=== PATIENT | female | born 1935 | race Caucasian/White ===

== ENCOUNTER 2017-07-21 20:06 | Inpatient (IN) | payer OTHER ==
[~2017-07-21] VITALS: Ht 162.6 cm; Wt 86.2 kg
--- NOTE | ~2017-07-21 | EKG ---
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
--- NOTE | ~2017-07-21 | 2DMMODE ---
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 BSA: 1.90 HR: 65 bpm BP: 124/64 mmHg Other Information Study Quality: Adequate Indications Non STEMI Chest Pain Hypertension/HDD 2D Dimensions RVDd: 39.46 mm LVEF(%): 64.61 (>50%) IVSd: 9.22 (7-11mm) LVOT Diam: 18.05 (18-24mm) LVDd: 45.80 mm PWd: 8.44 (7-11mm) Ascending Ao: 31.19 (22-36mm) LVDs: 29.68 (25-40mm) Aortic Root: 28.50 mm IVC: 17.00 mm Bowman's LVEF: 64.61 % Volumes Left Atrial Volume (Systole) Single Plane 4CH: 59.76 mL Single Plane 2CH: 49.90 mL LA ESV Index: 34.00 mL/m2 Aortic Valve AoV Peak Tam.: 1.10 m/s AO Peak Gr.: 4.83 mmHg LVOT Max P.47 mmHg LVOT Max V: 0.93 m/s JANA Vmax: 2.17 cm2 AI Vmax: 3.67 m/s AI [place]: 1.96 m/s2 AI PHT: 542.29 ms [facility] [place] [address] 2 D/M-MODE ECHOCARDIOGRAM Name: PAULA MARIN Room #: 217-P [facility] IN M.R.#: [id number] Admission: 07/21/17 Attend Phys: Piper Lucia Discharge: Date of : 33 Date of Service: 07/22/17 1342 Report #: [id number] Mitral Valve E/A Ratio: 3.5 MV Decel. Time: 158.63 ms MV E Max Tam.: 1.06 m/s MV A Tam.: 0.30 m/s MV PHT: 46.00 ms IVRT: 96.89 ms Pulmonary Valve PV Peak Tam.: 0.92 m/s PV Peak Gr.: 3.42 mmHg Pulmonary Vein P Vein S: 0.41 m/s P Vein A: 0.34 m/s P Vein D: 0.71 m/s P Vein A Dur.: 133.8 msec P Vein S/D Ratio: 0.58 Tricuspid Valve TR Peak Tam.: 3.05 m/s TR Peak Gr.: 37.29 mmHg PA Pressure: 42.00 mmHg Left Ventricle The left ventricle is normal size. There is akinesis in the apical wall. There is normal left ventricular wall thickness. Left ventricular ejection fraction is moderately decreased. LVEF is 35%. The diastolic function is abnormal. Right Ventricle The right ventricle is normal size. The right ventricular systolic function is normal. Atria Left atrium is at the upper limits of normal. Right atrium is borderline dilated. Aortic Valve The aortic valve is normal in structure. Aortic valve is calcified. Mild aortic regurgitation. There is no aortic valvular stenosis. Mitral Valve The mitral valve is normal in structure. Mild mitral regurgitation. No evidence of mitral valve stenosis. Tricuspid Valve [address] [address] 2 D/M-MODE ECHOCARDIOGRAM Name: PAULA MARIN AKHIL Room #: 217-P [facility] IN [facility].#: [id number] Admission: 07/21/17 Attend Phys: Piper Lucia Discharge: Date of : 31 Date of Service: 07/22/17 1342 Report #: [id number] The tricuspid valve is normal in structure. There is trace to mild tricuspid regurgitation. Estimated PAP 42 mmHg. There is moderate pulmonary hypertension. Pulmonic Valve The pulmonary valve is normal in structure. Trace pulmonic regurgitation. Great Vessels The aortic root is normal in size. IVC is normal in size and collapses >50% with inspiration. Pericardium There is no pericardial effusion. <Conclusion> The left ventricle is normal size. LVEF is 35%. Left atrium is at the upper limits of normal. Right atrium is borderline dilated. The aortic valve is normal in structure. Aortic valve is calcified. Mild aortic regurgitation. There is no aortic valvular stenosis. The mitral valve is normal in structure. Mild mitral regurgitation. The tricuspid valve is normal in structure. There is trace to mild tricuspid regurgitation. Estimated PAP 42 mmHg. There is moderate pulmonary hypertension. The pulmonary valve is normal in structure. Trace pulmonic regurgitation. There is no pericardial effusion. <ELECTRONICALLY SIGNED> By: Jorge Lundberg MD 07/22/17 1342 1342 1342 Jorge Lundberg MD /INF
--- NOTE | ~2017-07-21 | EKG ---
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 : 1935 Requested By: Edelmira Clement Order Number: [id number] MD: Leander Mcknight Measurements Intervals [place] Rate: 61 P: 69 [place]: 154 QRS: 59 QRSD: 95 T: 55 QT: 433 QTc: 437 Interpretive Statements Sinus rhythm Atrial premature complexes in couplets Low voltage, extremity leads Compared to ECG 01/04/2014 15:28:00 Atrial premature complex(es) now present Low QRS voltage now present Electronically Signed On 07-23-2017 8:09:25 CDT by Leander Mcknight [email or web address] <ELECTRONICALLY SIGNED> By: Leander Mcknight MD 07/23/17 0809 0436 0436 Leander Mcknight MD /EPI
--- NOTE | ~2017-07-21 | CATHLAB ---
[facility] [address] [place] [address] INVASIVE PROCEDURE REPORT Name: PAULA MARIN Room #: 217-P [facility] IN ..#: [id number] Admission: 07/21/17 Attend Phys: Sharath Schumacher, Discharge: Date of : 33 Date of Service: 07/24/17 1457 Report #: [id number] THIS REPORT FOR: //name// APPROVED REPORT Study performed: 07/23/2017 12:32:36 Patient Details Patient Status: In-Patient Room #: The patient is a 82 year-old female Event Personnel Jorge Lundberg [employer] Teacher, Sarah Garcia, TEST AND BALANCE ENGINEER Monitor, Caitlin Segal Knisely, Ceola RN explosives operator Performed Art Access - R femoral artery* 05190 Initial Mod Sed Same Phys/QHP Gr5y 335995 Left Heart Cath w/or w/o Coronaries 7145505 C Hemostasis w/ Mynx SAAD Place w/wo Plasty Single LAD 525434 supervision of conscious sedation Indication Non-STEMI Procedure Narrative The patient was brought urgently to the Cardiac Catheterization Laboratory and was prepped and draped in a sterile manner. The Right Groin^ was infiltrated with 1% Lidocaine subcutaneous anesthesia. A PINNACLE 4FR Sheath #[id number] sheath was inserted into the RFA^. Coronary angiography was performed using coronary diagnostic catheters. The right coronary system was accessed and visualized with a JR 4 catheter. The left coronary system was accessed and visualized with a JL 4 catheter. The left ventricle was accessed and visualized with a Pigtail catheter. Left ventricular/Aortic Valve gradient assessed via catheter pullback. Closure device was deployed with a 6 Fr Mynx. The patient tolerated the procedure well and there were no complications associated with the procedure. There was no hematoma. Intraoperative Conscious Sedation Sedation start time: 13:20 Case end Time: 13:46 Versed 2 mg [facility] [address] [place] [address] INVASIVE PROCEDURE REPORT Name: MARINPAULA AKHIL Room #: 217-P [facility] IN ..#: [id number] Admission: 07/21/17 Attend Phys: Sharath Schumacher, Discharge: Date of : 33 Date of Service: 07/24/17 1457 Report #: [id number] Fluoro Time: 6.30 minutes Dose: DAP 4860.76 cGycm2 Contrast Type and Amount: Omnipaque 145 ml Coronary Angiography The patient's coronary anatomy is right dominant. Diagnostic Cath Left Main Left main is of normal or drink caliber bifurcates left anterior descending left circumflex. There is mild luminal irregularities but no high-grade lesions present LAD Small to moderate caliber type II vessel which courses in the anterior interventricular sulcus prior to the origin of the first septal craft worker there is a lesion that appears to be greater than 95% it is eccentric in nature. The vessel then continues on in the sulcus giving rise to diagonal and other septal branches. In the proximal third of the mid LAD there is a region that appears to be 50% eccentric restenosis which is not flow-limiting. The vessel then continues with the apex terminates as a small caliber vessel Diagonal 1 Small-caliber vessel coursing on the anterolateral wall. High-grade disease Circumflex Moderate caliber vessel disease in the AV groove giving rise to marginal branches first of which is quite low moderate to large in caliber with only a mild ostial tapering but no high-grade lesions the subsequent terminal branch of the circumflex is a trifurcating posterior wall branch. OM1 March large-caliber vessel without significant obstructive lesions noted as it courses on the lateral aspect of the heart Right Coronary Moderate caliber vessel of normal origin with there is a 50% proximal eccentric lesion. This vessel continues on giving rise to small RV marginal branches and then terminates as a posterior descending artery extending towards the apex. No high-grade stenotic lesions are noted in the mid R PDA Her caliber vessel without significant high-grade lesions noted Left Ventriculography Left Ventriculography was not performed. Hemodynamics The aortic pressure is 155/81 mmHg with a mean of 118 mmHg. The left ventricular pressure is 161/23 mmHg with a mean of mmHg. The left ventricular end diastolic pressure is 36 mmHg. PCI Technique Diagnostic catheters were then exchanged for a standard left guide [facility] [address] [place] [address] INVASIVE PROCEDURE REPORT Name: TOMASPAULAJJ LANDAVERDE Room #: 217-P ADM IN M.R.#: [id number] Admission: 07/21/17 Attend Phys: Sharath Schumacher, Discharge: Date of : 33 Date of Service: 07/24/17 1457 Report #: [id number] which was engaged with a left coronary ostium. 014 wire was advanced percent of protocol and positioned distal to the lesion. 2.5 x 14 mm SAAD stent was then positioned across the stenotic region and was dilated to 12 casey the vessel appeared patent post dilatation. Septal craft worker had a previous high-grade ostial lesion and the vessel was not further compromised by stenting. The LAD then continues on in reassessment of the mid LAD lesion showed to be no greater than 50% stenosed and was not intervened especially since the diameter of the LAD proper was less than 1.5 mm. Patient tolerated procedure well wires and guide catheters were removed. Going angiography was performed and the site was closed per protocol. No complications. LUZ flow was improved to normal post dilatation without signs of intraluminal disruption, thrombus. PCI Technique Lesion Anticoagulation was achieved with Angiomax. Percutaneous coronary intervention was performed on the proximal left anterior descending artery segment. A LAUNCHER 6FR JL4 #[id number] Guide Catheter was used to engage the ostium. A Luge Wire (J) .014 X 182CM #[id number] Interventional Guidewire was used to cross the lesion. BALLOON DILATION A Balloon catheter RESOLUTE OTW 2.5 X 14 #[id number] was inserted and inflated up to 9.00atm for 15seconds. Additional Inflation: 12.00atm for 10seconds. Conclusion 1. Coronary disease, severe single-vessel 2. Abnormal urinalysis elevated lipids with end-diastolic pressures 3. Successful percutaneous revascularization with a 2.5 x 14 Medtronic SAAD stent position in the proximal LAD dilated to 12 casey Recommendations Cardiac Rehabilitation Referral Cardiac Risk Reduction Program Aggressive Medical Therapy [facility] [email or web address] [address] INVASIVE PROCEDURE REPORT Name: PAULA MARIN Room #: 217-P ADM IN M.R.#: [id number] Admission: 07/21/17 Attend Phys: Sharath Schumacher, Discharge: Date of : 33 Date of Service: 07/24/17 1457 Report #: [id number] Medications Administered Ticagrelor <ELECTRONICALLY SIGNED> By: Jorge Lundberg MD 07/24/17 1457 56 56 Jorge Lundberg MD /INF
--- NOTE | ~2017-07-21 | EKG ---
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 : 1935 Requested By: Jorge Lundberg Order Number: [id number] MD: Morris Archibald Measurements Intervals [place] Rate: 70 P: 61 [place]: 159 QRS: 66 QRSD: 91 T: 150 QT: 479 QTc: 517 Interpretive Statements Sinus rhythm Low voltage, extremity leads Nonspecific T abnrm, anterolateral leads Prolonged QT interval Compared to ECG 07/22/2017 04:36:15 Prolonged QT interval now present Atrial premature complex(es) no longer present Electronically Signed On 07-24-2017 7:51:19 CDT by Morris Archibald [email or web address] <ELECTRONICALLY SIGNED> By: Morris Archibald MD, [facility] 07/24/17 0751 0644 0644 Morris Archibald MD, [facility] /EPI
[~2017-07-21 20:06] MED LIST: BENICAR20 MG PO; CELEBREX 200 M200 MG PO; CLONAZEPAM 1 MG1 M1 PO; KEFLEX500 MG PO; LIPITOR 10 MG10 M1 PO; OMEPRAZOLE 20 M20 M1 PO; SYNTHROID50 MCG PO; TOPROL XL50 MG PO
[2017-07-21 20:08] VITALS: BP 181/90
[2017-07-21] MEDS ORDERED: BENICAR20 MG PO (20:33)
[2017-07-21] MEDS ORDERED: MAGNESIUM PO (20:35)
[2017-07-21 20:45] LABS: ABSOLUTE NEUTROPHILS 3.2 thou/uL (1.4-8.2); BASOPHILS 0.8 % (0.0-2.0); EOSINOPHILS 3.8 % (0.0-3.0); HEMATOCRIT 40.3 % (37.0-47.0); HEMOGLOBIN 13.4 gm/dL (12.0-15.0); LYMPHOCYTES 34.8 % (24.0-44.0); MCH 30.7 pg (26.0-34.0); MCHC 33.3 g/dL (28.0-37.0); MCV 92.4 fL (80.0-100.0); PLATELET COUNT 174 thou/uL (150-400); POLYS 49.6 % (36.0-66.0); RBC 4.36 mil/uL (4.20-5.00); RDW 13.7 % (10.5-14.5); WBC 6.5 thou/uL (4.0-11.0)
[2017-07-21 20:53] LABS: CALCIUM 9.6 mg/dL (8.5-10.1); CREATININE 1.2 mg/dL (0.6-1.0); POTASSIUM 4.1 mmol/L (3.5-5.1)
[2017-07-21 21:02] LABS: ALBUMIN 3.6 g/dL (3.4-5.0); TOTAL BILIRUBIN 0.5 mg/dL (<0.1-1.0); TOTAL PROTEIN 7.8 g/dL (6.4-8.2); TROPONIN-I 0.07 ng/mL (<0.06)
[2017-07-21 21:11] LABS: URINE BILIRUBIN NEGATIVE (Negative); URINE BLOOD NEGATIVE (Negative); URINE CLARITY CLEAR; URINE COLOR YELLOW; URINE GLUCOSE-RANDOM* NEGATIVE (Negative); URINE KETONES NEGATIVE (Negative); URINE LEUKOCYTES TRACE (Negative); URINE NITRITE NEGATIVE (Negative); URINE PROTEIN (DIPSTICK) NEGATIVE (Negative); URINE UROBILINOGEN 0.2 E.U./dl (0.2-1.0)
[2017-07-21 22:12] VITALS: BP 166/77
[2017-07-21 22:57] VITALS: BP 164/70
[2017-07-21 23:20] VITALS: BP 144/57
[2017-07-22] MEDS ORDERED: REMERON15 MG PO (00:43)
[2017-07-22 04:59] VITALS: BP 113/67
[2017-07-22 07:50] VITALS: BP 139/63
[2017-07-22 09:07] LABS: HEMATOCRIT 39.9 % (37.0-47.0); HEMOGLOBIN 13.3 gm/dL (12.0-15.0); MCH 30.7 pg (26.0-34.0); MCHC 33.5 g/dL (28.0-37.0); MCV 91.8 fL (80.0-100.0); RBC 4.34 mil/uL (4.20-5.00); RDW 13.4 % (10.5-14.5); WBC 7.1 thou/uL (4.0-11.0)
[2017-07-22 09:16] LABS: PROTIME 10.6 Seconds (9.3-11.4)
[2017-07-22 09:20] LABS: CHOLESTEROL 196 mg/dL (<200); HDL CHOLESTEROL 73 mg/dL (>40); LDL CHOLESTEROL 117 mg/dL (<100); SERUM ASSESSMENT Clear; TC:HDL 2.7 Ratio (Not establshd); TRIGLYCERIDE 31 mg/dL (<150); VLDL 6 mg/dL (<40)
[2017-07-22 11:20] VITALS: BP 124/64
[2017-07-22 16:05] VITALS: BP 144/60
[2017-07-22 21:09] VITALS: BP 116/61
[2017-07-22 23:07] LABS: GLYCOHEMOGLOBIN (HGB A1C) 5.8 % (4.8-5.6)
[2017-07-23] VITALS (10 sets, daily range): BP systolic 104–139; BP diastolic 43–78
[2017-07-24 04:11] LABS: HEMATOCRIT 38.3 % (37.0-47.0); HEMOGLOBIN 12.8 gm/dL (12.0-15.0); MCH 30.7 pg (26.0-34.0); MCHC 33.5 g/dL (28.0-37.0); MCV 91.7 fL (80.0-100.0); RBC 4.17 mil/uL (4.20-5.00); RDW 13.5 % (10.5-14.5); WBC 7.7 thou/uL (4.0-11.0)
[2017-07-24 04:26] LABS: CALCIUM 8.4 mg/dL (8.5-10.1); POTASSIUM 3.6 mmol/L (3.5-5.1)
[2017-07-24 05:41] VITALS: BP 101/38
[2017-07-24 08:54] VITALS: BP 109/52
[2017-07-24 12:15] VITALS: BP 88/51
[2017-07-24] MEDS ORDERED: BRILINTA90 MG PO (14:04)
[2017-07-24] MEDS ORDERED: LIPITOR 20 MG T20 M1 PO (14:05)
[2017-07-24] MEDS ORDERED: COREG6.25 MG PO (14:09)
[2017-07-24] MEDS ORDERED: ASPIR 8181 MG PO (14:09)
== END 2017-07-24 16:08 | DRG 246 ==
LOC: ER 20:06 → EROBS 21:28 → 2N 21:28
PROVIDERS: Internal Medicine; Nurse Practitioner Acute Care; Physician Assistant
PROC: 4A023N7 Measurement of Cardiac Sampling and Pressure, Left Heart, Percutaneous Approach (ICD-10-PCS; principal; 2017-07-24)
PROC: 027034Z Dilation of Coronary Artery, One Artery with Drug-eluting Intraluminal Device, Percutaneous Approach (ICD-10-PCS; principal; 2017-07-24)
PROC: B2111ZZ Fluoroscopy of Multiple Coronary Arteries using Low Osmolar Contrast (ICD-10-PCS; principal; 2017-07-24)
DX: I21.4 Non-ST elevation (NSTEMI) myocardial infarction (principal); I50.33 Acute on chronic diastolic (congestive) heart failure; N17.9 Acute kidney failure, unspecified; E78.00 Pure hypercholesterolemia, unspecified; E78.5 Hyperlipidemia, unspecified; Z96.643 Presence of artificial hip joint, bilateral; E03.9 Hypothyroidism, unspecified; G47.00 Insomnia, unspecified; Z60.2 Problems related to living alone; M19.90 Unspecified osteoarthritis, unspecified site; K30 Functional dyspepsia; Z79.82 Long term (current) use of aspirin; Z79.899 Other long term (current) drug therapy; Z82.49 Family history of ischemic heart disease and other diseases of the circulatory system; Z88.1 Allergy status to other antibiotic agents; I11.0 Hypertensive heart disease with heart failure
CPT/HCPCS: 10081

== ENCOUNTER 2017-10-06 22:12 | Emergency (ER) | payer OTHER ==
[~2017-10-06] VITALS: Ht 170.2 cm; Wt 74.8 kg
--- NOTE | ~2017-10-06 | EKG ---
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 : 1935 Requested By: Nalini Moncada Order Number: [id number] MD: Morris Archibald Measurements Intervals [place] Rate: 61 P: 45 ID: 172 QRS: 39 QRSD: 95 T: 71 QT: 413 QTc: 416 Interpretive Statements Sinus rhythm Baseline wander in lead(s) I,III,aVL Compared to ECG 07/24/2017 06:44:19 Prolonged QT interval no longer present Electronically Signed On 10-08-2017 8:35:48 CDT by Morris Archibald [email or web address] <ELECTRONICALLY SIGNED> By: Morris Archibald MD, [facility] 08/834 52 52 Morris Archibald MD, [facility] /EPI
[~2017-10-06 22:12] MED LIST changes: +ASPIR 8181 MG PO; +BRILINTA90 MG PO; +COREG6.25 MG PO; +LIPITOR 20 MG T20 M1 PO; +MAGNESIUM PO; +REMERON15 MG PO
[2017-10-06 23:19] LABS: HEMATOCRIT 39.2 % (37.0-47.0); MCH 30.7 pg (26.0-34.0); MCHC 33.2 g/dL (28.0-37.0); MCV 92.5 fL (80.0-100.0); PLATELET COUNT 141 thou/uL (150-400); RBC 4.24 mil/uL (4.20-5.00); RDW 13.9 % (10.5-14.5); WBC 5.7 thou/uL (4.0-11.0)
[2017-10-06 23:25] LABS: ANION GAP 8 mmol/L (7-16); BUN 23 mg/dL (7-18); CALCIUM 9.1 mg/dL (8.5-10.1); CHLORIDE 105 mmol/L (98-107); CO2 27 mmol/L (21-32); CREATININE 1.2 mg/dL (0.6-1.0); GLUCOSE 117 mg/dL (74-106); POTASSIUM 3.9 mmol/L (3.5-5.1); SODIUM 140 mmol/L (136-145)
[2017-10-06 23:34] LABS: TROPONIN-I <0.06 ng/mL (<0.06)
[2017-10-06 23:53] LABS: ABSOLUTE NEUTROPHILS 2.7 thou/uL (1.4-8.2)
[2017-10-07 00:40] VITALS: BP 132/58
== END 2017-10-07 00:44 | disposition home or self-care (01) ==
LOC: ER 22:12
PROVIDERS: Emergency Medicine
DX: I10 Essential (primary) hypertension (principal); E78.00 Pure hypercholesterolemia, unspecified; E03.9 Hypothyroidism, unspecified; Z96.643 Presence of artificial hip joint, bilateral; Z88.1 Allergy status to other antibiotic agents

== ENCOUNTER 2017-10-23 19:00 | Inpatient (IN) | payer OTHER ==
[~2017-10-23] VITALS: Ht 170.2 cm; Wt 79.1 kg
--- NOTE | ~2017-10-23 | EKG ---
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
--- NOTE | ~2017-10-23 | P ---
[facility] [place] [address] PROCEDURE REPORT Name: PAULA MARIN Room #: 212-P [facility] IN M.R.#: [id number] Admission: 10/23/17 Attend Phys: Ramakrishna Hemphill MD Discharge: 10/26/17 Date of : 33 Report #: [id number] THIS REPORT FOR: //name// CC: SEBASTIAN physician/PCP Ramakrishna Hemphill PREOPERATIVE DIAGNOSES: 1. Paroxysmal atrial fibrillation. 2. Sick sinus syndrome. 3. Tachycardia-bradycardia syndrome. 4. Coronary artery disease, status post recent stent placement. PROCEDURE PERFORMED: Dual chamber pacemaker implantation. DESCRIPTION OF PROCEDURE: The patient underwent informed consent. We discussed the details of the procedure including the risks, which include, but not limited to, bleeding, infection, vascular damage, cardiac perforation, pneumothorax. She understood these risks and was willing to proceed. The patient was brought to the EP laboratory in fasting and unsedated state, prepped and draped in a sterile fashion. She received IV antibiotics prior to initiation of the procedure and underwent a venogram showing patent left axillary vein. Next, I injected lidocaine at the level of the left clavicle. Incision was made, pocket was created over the prepectoral fascia and access was obtained twice to the left axillary vein using the extrathoracic approach with sheaths positioned using the modified Seldinger technique. Next, under fluoroscopy, a lead was positioned in the right ventricular apex and right atrial appendage both with adequate pacing and sensing thresholds. Leads were sutured to the prepectoral fascia. The device was connected. Pocket was irrigated and the pocket was closed in 3 layers using 2-0 for the deep layer, 3-0 for the mid layer, 4-0 for the subcuticular with surgical glue placed in the skin layer. The patient awoke neurologically and hemodynamically intact. No complications and no significant bleeding. The implanted pacemaker was a [employer], model number [id number], serial number [id number]. The atrial lead was a [employer], model number [id number], serial number [id number] with a P-wave of 3.4 millivolts, pacing impedance of 525 ohms and a pacing threshold of 0.75 volts at 0.4 milliseconds. The RV lead was a [employer] model number [id number], serial number [id number] with an R-wave of greater than 12 millivolts, pacing impedance of 800 ohms and pacing threshold 0.75 volts at 0.4 milliseconds. The device was programmed to the DDDR 60-130 mode. CONCLUSIONS: [facility] [address] [place] [address] PROCEDURE REPORT Name: TOMASPAULAJJ LANDAVERDE Room #: [address] [place] [address]..#: [id number] Admission: 10/23/17 Attend Phys: Ramakrishna Hemphill MD Discharge: 10/26/17 Date of : 33 Report #: [id number] 1. Successful dual-chamber pacemaker implantation. 2. Satisfactory atrial and ventricular pacing and sensing thresholds. By: 1356 2332 Leander Mcknight MD /nt
--- NOTE | ~2017-10-23 | HC ---
[facility] [place] [address] CONSULTATION Name: PAULA MARIN Room #: 212-P [facility] IN M.R.#: [id number] Admission: 10/23/17 Attend Phys: Ramakrishna Hemphill MD Discharge: 10/26/17 Date of : 33 Report #: [id number] THIS REPORT FOR: //name// CC: SEBASTIAN physician/PCP Ramakrishna Hemphill Electrophysiology Consultation REASON FOR CONSULTATION: Tachycardia-bradycardia syndrome. HISTORY OF PRESENT ILLNESS: The patient is an 82-year-old who in July had an NC, status post drug-eluting stent to the proximal LAD. She was recently seen by Dr. Archibald in clinic, had a repeat echocardiogram showing normalization of her ejection fraction since her NC. She presented to the hospital with presyncopal symptoms. She was placed on telemetry and she was found to have atrial fibrillation with rapid ventricular response with rates in the 130s. Her beta ida has currently been decreased, as she has been experiencing periods of sinus bradycardia down into the 40s. She currently denies chest pain, shortness of breath, PND, orthopnea and she has had no further lightheadedness or syncopal episode since being hospitalized. PAST MEDICAL HISTORY: Includes: 1. Coronary artery disease. 2. Hypertension. 3. Hyperlipidemia. 4. Sinus bradycardia. 5. GERD. SOCIAL HISTORY: Does not smoke. FAMILY HISTORY: Noncontributory. ALLERGIES: TETRACYCLINE. MEDICATIONS: Include Plavix, trazodone, melatonin, Synthroid, magnesium, atorvastatin, Coreg, aspirin. REVIEW OF SYSTEMS: A 12-point review of systems was performed and was negative other than what I mentioned above. PHYSICAL EXAMINATION: VITAL SIGNS: Pulse is in the 50s to 60s, temperature is 36.9, respiration is 16, blood pressure 137/77, and sats are 99%. GENERAL: She is in no acute distress. Alert, oriented times 3. HEENT: Oropharynx is clear. Mucous membranes are moist. NECK: Supple, no thyromegaly. HEART: Regular rate and rhythm with no murmurs, rubs or gallops. [facility] [address] [place] [address] CONSULTATION Name: PAULA MARIN AKHIL Room #: 212-[facility] IN ..#: [id number] Admission: 10/23/17 Attend Phys: Ramakrishna Hemphill MD Discharge: 10/26/17 Date of : 33 Report #: [id number] LUNGS: Clear to auscultation bilaterally. ABDOMEN: Soft, nontender, and nondistended. No hepatosplenomegaly. EXTREMITIES: There is no clubbing, cyanosis or edema. NEUROLOGIC: Cranial nerves 2-12 are intact. LABORATORY DATA: CBC is normal other than platelets of 140. Chemistry: Creatinine is 1.1. Troponin is negative. ProBNP is 399. Chest x-ray shows no acute process. CONCLUSIONS: 1. Atrial fibrillation with rapid ventricular response. 2. Sick sinus syndrome. 3. Tachycardia-bradycardia syndrome. 4. Coronary artery disease status post myocardial infarction. 5. Hypertension. ASSESSMENT AND PLAN: In summary, the patient is an 83-year-old with new onset paroxysmal atrial fibrillation with rapid ventricular response. She also has periods of sinus bradycardia down into the 40s. Based on these findings, she has tachycardia-bradycardia syndrome. Based on these findings, I have recommended that she undergo dual chamber pacemaker implantation. We have discussed the details of the procedure including the risks, which include, but not limited to bleeding, infection, vascular damage, cardiac perforation, and pneumothorax. She understands these risks and is willing to proceed. <ELECTRONICALLY SIGNED> By: Leander Mcknight MD 11/02/17 1340 1651 0234 Leander Mcknight MD /nt
[2017-10-23 19:01] VITALS: BP 151/59
[2017-10-23 21:14] LABS: HEMATOCRIT 36.3 % (37.0-47.0); HEMOGLOBIN 12.4 gm/dL (12.0-15.0); MCH 31.5 pg (26.0-34.0); MCHC 34.3 g/dL (28.0-37.0); RBC 3.95 mil/uL (4.20-5.00); RDW 13.8 % (10.5-14.5); WBC 7.2 thou/uL (4.0-11.0)
[2017-10-23 21:17] LABS: ANION GAP 8 mmol/L (7-16); BUN 20 mg/dL (7-18); CALCIUM 9.5 mg/dL (8.5-10.1); CHLORIDE 104 mmol/L (98-107); CO2 27 mmol/L (21-32); CREATININE 1.2 mg/dL (0.6-1.0); GLUCOSE 111 mg/dL (74-106); POTASSIUM 4.5 mmol/L (3.5-5.1); SODIUM 139 mmol/L (136-145)
[2017-10-23 21:22] LABS: URINE BILIRUBIN NEGATIVE (Negative); URINE BLOOD NEGATIVE (Negative); URINE CLARITY CLEAR; URINE COLOR YELLOW; URINE GLUCOSE-RANDOM* NEGATIVE (Negative); URINE KETONES NEGATIVE (Negative); URINE LEUKOCYTES-REFLEX NEGATIVE (Negative); URINE NITRITE-REFLEX NEGATIVE (Negative); URINE PROTEIN (DIPSTICK) NEGATIVE (Negative); URINE SPECIFIC GRAVITY <= 1.005 (1.005-1.035); URINE UROBILINOGEN 0.2 E.U./dl (0.2-1.0)
[2017-10-23 21:26] LABS: ALBUMIN 3.4 g/dL (3.4-5.0); MAGNESIUM 1.9 mg/dL (1.8-2.4); SGOT 39 U/L (15-37); SGPT 41 U/L (30-65); TOTAL BILIRUBIN 0.6 mg/dL (<0.1-1.0); TOTAL PROTEIN 7.3 g/dL (6.4-8.2); TROPONIN-I <0.06 ng/mL (<0.06)
[2017-10-23 23:02] VITALS: BP 169/75
[2017-10-23 23:06] VITALS: BP 137/58
[2017-10-23 23:28] VITALS: BP 155/66
[2017-10-24] MEDS ORDERED: PLAVIX 75 MG TA75 MG PO (00:09)
[2017-10-24] MEDS ORDERED: MELATONIN5 M1 PO (00:11)
[2017-10-24] MEDS ORDERED: TRAZODONE HCL50 MG PO (00:11)
[2017-10-24 04:30] VITALS: BP 114/62; BP 145/79; BP 147/87
[2017-10-24 05:49] LABS: CALCIUM 9.4 mg/dL (8.5-10.1); CREATININE 1.1 mg/dL (0.6-1.0); POTASSIUM 3.9 mmol/L (3.5-5.1)
[2017-10-24 08:13] VITALS: BP 180/82; BP 188/104; BP 190/77
[2017-10-24 11:34] LABS: MAGNESIUM 1.9 mg/dL (1.8-2.4); TROPONIN-I <0.06 ng/mL (<0.06)
[2017-10-24 11:50] VITALS: BP 137/77; BP 144/66; BP 147/78
[2017-10-24 17:49] VITALS: BP 143/76; BP 151/74; BP 173/83
[2017-10-24 20:11] VITALS: BP 126/59
[2017-10-24 20:12] VITALS: BP 117/71; BP 143/69
[2017-10-25 03:45] VITALS: BP 123/60
[2017-10-25 03:54] VITALS: BP 146/74; BP 151/75
[2017-10-25 05:57] LABS: HEMATOCRIT 37.1 % (37.0-47.0); HEMOGLOBIN 12.7 gm/dL (12.0-15.0); MCH 31.3 pg (26.0-34.0); MCHC 34.1 g/dL (28.0-37.0); MCV 91.9 fL (80.0-100.0); RBC 4.04 mil/uL (4.20-5.00); RDW 13.8 % (10.5-14.5); WBC 4.9 thou/uL (4.0-11.0)
[2017-10-25 06:06] LABS: ALBUMIN 3.2 g/dL (3.4-5.0); CALCIUM 9.3 mg/dL (8.5-10.1); POTASSIUM 4.1 mmol/L (3.5-5.1); TOTAL BILIRUBIN 0.6 mg/dL (<0.1-1.0); TOTAL PROTEIN 7.2 g/dL (6.4-8.2)
[2017-10-25 08:11] VITALS: BP 123/68
[2017-10-25 15:00] VITALS: BP 134/57
[2017-10-25 20:19] VITALS: BP 165/65
[2017-10-26 04:43] LABS: ABSOLUTE NEUTROPHILS 3.7 thou/uL (1.4-8.2); BASOPHILS 0.5 % (0.0-2.0); EOSINOPHILS 3.9 % (0.0-3.0); HEMATOCRIT 37.3 % (37.0-47.0); HEMOGLOBIN 12.8 gm/dL (12.0-15.0); LYMPHOCYTES 20.8 % (24.0-44.0); MCH 31.4 pg (26.0-34.0); MCHC 34.3 g/dL (28.0-37.0); MCV 91.8 fL (80.0-100.0); MONOCYTES 11.4 % (1.0-8.0); PLATELET COUNT 134 thou/uL (150-400); POLYS 63.4 % (36.0-66.0); RBC 4.07 mil/uL (4.20-5.00); RDW 14.1 % (10.5-14.5); WBC 5.8 thou/uL (4.0-11.0)
[2017-10-26 05:03] LABS: CALCIUM 8.6 mg/dL (8.5-10.1); MAGNESIUM 1.9 mg/dL (1.8-2.4)
[2017-10-26 05:10] LABS: LYME ANTIBODY SCREEN* <0.91 ISR (0.00-0.90)
[2017-10-26 05:11] VITALS: BP 128/56
[2017-10-26 07:40] VITALS: BP 126/61
[2017-10-26 11:43] VITALS: BP 131/55
[2017-10-26] MEDS ORDERED: COREG6.25 MG PO (12:35)
[2017-10-26 15:33] VITALS: BP 104/54; BP 131/55
== END 2017-10-26 17:43 | disposition home or self-care (01) | DRG 242 ==
LOC: ER 19:00 → 3W 22:22 → EROBS 22:22 → 3W 23:13 → 2N 10-25 14:57 → ENTRNSPT 10-26 16:51 → 2N 10-26 17:43
PROVIDERS: Emergency Medicine; Hospitalist; Nurse Practitioner; Nurse Practitioner Family
PROC: 0JH606Z Insertion of Pacemaker, Dual Chamber into Chest Subcutaneous Tissue and Fascia, Open Approach (ICD-10-PCS; principal; 2017-10-25)
PROC: 02HK3JZ Insertion of Pacemaker Lead into Right Ventricle, Percutaneous Approach (ICD-10-PCS; principal; 2017-10-25)
PROC: 02H63JZ Insertion of Pacemaker Lead into Right Atrium, Percutaneous Approach (ICD-10-PCS; principal; 2017-10-25)
DX: I49.5 Sick sinus syndrome (principal); E43 Unspecified severe protein-calorie malnutrition; I10 Essential (primary) hypertension; I25.10 Atherosclerotic heart disease of native coronary artery without angina pectoris; K21.9 Gastro-esophageal reflux disease without esophagitis; E78.5 Hyperlipidemia, unspecified; I42.9 Cardiomyopathy, unspecified; G47.00 Insomnia, unspecified; E03.9 Hypothyroidism, unspecified; I48.0 Paroxysmal atrial fibrillation; Z96.643 Presence of artificial hip joint, bilateral; I25.2 Old myocardial infarction; Z87.828 Personal history of other (healed) physical injury and trauma; Z95.5 Presence of coronary angioplasty implant and graft; Z79.82 Long term (current) use of aspirin; Z79.02 Long term (current) use of antithrombotics/antiplatelets; Z79.899 Other long term (current) drug therapy; Z88.1 Allergy status to other antibiotic agents; Z82.49 Family history of ischemic heart disease and other diseases of the circulatory system
CPT/HCPCS: 10081; 10879; 62110; 62900; 70005

== ENCOUNTER 2019-02-07 09:37 | Emergency (ER) | payer OTHER ==
[~2019-02-07] VITALS: Ht 167.6 cm; Wt 72.6 kg
[~2019-02-07 09:37] MED LIST changes: +MELATONIN5 M1 PO; +PLAVIX 75 MG TA75 MG PO; +TRAZODONE HCL50 MG PO
[2019-02-07] MEDS ORDERED: PROTONIX 20 MG20 MG PO (10:05)
[2019-02-07] MEDS ORDERED: LEXAPRO 10 MG T10 M2 PO (10:06)
[2019-02-07] MEDS ORDERED: BENICAR20 MG PO (10:06)
[2019-02-07] MEDS ORDERED: ATENOLOL 25 MG25 M1 PO (10:06)
[2019-02-07] MEDS ORDERED: VITAMIN D400 UNIT PO (10:07)
[2019-02-07] MEDS ORDERED: TIKOSYN.125 PO (10:08)
[2019-02-07] MEDS ORDERED: DOFETILIDE250 MCG PO (10:08)
[2019-02-07 11:46] VITALS: BP 147/57
== END 2019-02-07 11:53 | disposition home or self-care (01) ==
LOC: ER 09:37
DX: R04.0 Epistaxis (principal); I10 Essential (primary) hypertension; E78.5 Hyperlipidemia, unspecified; E03.9 Hypothyroidism, unspecified; I25.2 Old myocardial infarction; Z88.6 Allergy status to analgesic agent